=== PATIENT | female | born 1960 | race American Indian/Alaskan Native ===

== ENCOUNTER 2017-02-14 13:55 | Emergency (ER) | payer BC, MEDICAID, OTHER ==
[2017-02-14 13:55] VITALS: BMI 31.9
[2017-02-14 14:03] VITALS: RESP 18; TEMP 98.2; O2SAT 100
--- NOTE | 2017-02-14 14:29 | RAD ---
HISTORY: R/O FB COMPARISON: No prior. TECHNIQUE: Chest PA and lateral FINDINGS: LUNGS: The lungs are hyperinflated and there is peribronchial thickening with chronic changes in both lungs. There is scarring in both lower lobes and right mid lung. No focal consolidation. No evidence of radiopaque foreign body in the chest. PLEURA: No significant pleural effusion identified. No pneumothorax apparent. CARDIOVASCULAR: Normal. OSSEOUS STRUCTURES: No significant abnormalities. VISUALIZED UPPER ABDOMEN: Normal. OTHER FINDINGS: None. IMPRESSION: No acute findings. No evidence of radiopaque foreign body.
[2017-02-14] MEDS ORDERED: Sodium Chloride 0.9% 1,000 ML IV ONE (14:30)
[2017-02-14] MEDS ORDERED: Sodium Chloride 0.9% 1,000 ML ONE (14:53)
[2017-02-14 15:12] LABS: BASO % 0.5 % (0.0-2.0); EOS % 0.6 % (0.0-4.0); HEMATOCRIT 39.5 % (34.0-47.0); LYMPH # 1.5 K/uL (1.0-4.3); LYMPH % 31.4 % (20.0-40.0); MEAN CELL VOLUME 72.9 fL (81.0-99.0); MEAN CORPUSCULAR HEMOGLOBIN 22.8 pg (27.0-31.0); MEAN CORPUSCULAR HGB CONC 31.3 g/dL (33.0-37.0); MEAN PLATELET VOLUME 8.4 fL (7.2-11.7); MONO # 0.5 K/uL (0.0-0.8); MONO % 9.7 % (0.0-10.0); NRBC % 0.1 % (0.0-2.0); RED CELL DISTRIBUTION WIDTH 15.2 % (11.5-14.5); WHITE BLOOD COUNT 4.8 K/uL (4.8-10.8)
[2017-02-14 15:20] LABS: CHLORIDE 101 mmol/L (98-107); POTASSIUM 3.4 mmol/L (3.6-5.2); SODIUM 140 mmol/L (132-148)
[2017-02-14 15:22] LABS: AST/SGOT 21 U/L (14-36); BILIRUBIN,TOTAL 1.3 mg/dL (0.2-1.3); CARBON DIOXIDE 31 mmol/L (22-30); GFR AFRICAN-AMERICAN > 60
[2017-02-14 15:23] LABS: ALB/GLOB RATIO 1.2 (1.0-2.1); ALKALINE PHOSPHATASE 78 U/L (38-126); ALT/SGPT 20 U/L (9-52); BLOOD UREA NITROGEN 6 mg/dL (7-17); CALCIUM 8.9 mg/dl (8.6-10.4); GLUCOSE,RANDOM 104 mg/dL (65-105); MAGNESIUM 1.8 mg/dL (1.6-2.3)
--- NOTE | 2017-02-14 15:46 | C.PDOC ---
Time Seen by Provider: 02/14/17 14:14 Chief Complaint (Nursing): GI Problem History Per: Patient Onset/Duration Of Symptoms: Hrs (since last night) Current Symptoms Are (Timing): Still Present Context: Food (Pt states she was eating chicken last night when she felt that it got stuck in her chest. ) Severity: Moderate Location Of Pain/Discomfort: Other (esophagus) Quality Of Discomfort: Other (Feels food stuck) Associated Symptoms: Other (Pt is spitting up everything that she drinks) Exacerbating Factors: Food Alleviating Factors: None Additional History Per: Prior Records Past Medical History Reviewed: Historical Data, Nursing Documentation, Vital Signs Vital Signs: Last Vital Signs Temp 98.2 F 02/14/17 14:00 Pulse 75 02/14/17 14:00 Resp 18 02/14/17 14:00 BP 133/64 02/14/17 14:00 Pulse Ox 100 02/14/17 15:49 - Medical History PMH: Arthritis (BACK), Back Problems, Diabetes, HTN Surgical History: Endoscopy Family History: States: Unknown Family Hx - Social History Hx Tobacco Use: Yes Hx Alcohol Use: Yes Hx Substance Use: No - Immunization History Hx Tetanus Toxoid Vaccination: No Hx Influenza Vaccination: No Hx Pneumococcal Vaccination: No Review Of Systems Except As Marked, All Systems Reviewed And Found Negative. Constitutional: Negative for: Fever ENT: Negative for: Throat Pain Cardiovascular: Negative for: Light Headedness Respiratory: Negative for: Shortness of Breath, Hemoptysis Gastrointestinal: Negative for: Abdominal Pain, Constipation, Melena, Hematochezia, Hematemesis Musculoskeletal: Negative for: Neck Pain, Back Pain Skin: Negative for: Rash Neurological: Negative for: Weakness, Numbness, Seizures, Altered Mental Status Physical Exam - Physical Exam Appears: Non-toxic, No Acute Distress Skin: Normal Color, Warm, Dry, No Rash Head: Atraumatic, Normacephalic Eye(s): bilateral: PERRL, EOMI Throat: Normal Neck: Normal ROM, Supple Cardiovascular: Rhythm Regular Respiratory: Normal Breath Sounds, No Accessory Muscle Use Gastrointestinal/Abdominal: Soft, No Tenderness Back: No CVA Tenderness Extremity: Normal ROM Neurological/Psych: Oriented x3, Normal Speech, Normal Motor, Normal Sensation ED Course And Treatment - Laboratory Results Result Diagrams: 02/14/17 15:08 06/26/17 15:08 Lab Interpretation: No Acute Changes O2 Sat by Pulse Oximetry: 100 Pulse Ox Interpretation: Normal - Radiology CXR: Viewed By Me, Read By Radiologist CXR Interpretation: Yes: No Acute Disease Progress Note: Symptoms resolved after Reglan. Pt is now tolerating PO. Reassessment Condition: Improved Progress - Interventions Interventions:: Observation, Intravenous fluid - Medications Administered Intravenous: Antiemetic, Other (PPI) - Data Reviewed Data Reviewed: Lab, Diagnostic imaging, Old records - Patient Status Patient status: Completely improved - Continuity of Care Discussed patient case with:: Patient, ED Nurse - Patient Plan Patient Plan: Discharge, F/U with PCP, Continue present meds Disposition Counseled Patient/Family Regarding: Studies Performed, Diagnosis, Need For Followup, Rx Given - Disposition Referrals: Nathan Varela MD [Medical Doctor] - Dominga Marks [Staff Provider] - Disposition: HOME/ ROUTINE Disposition Time: 15:50 Condition: IMPROVED Additional Instructions: Follow up with your doctor and with a [facility] [employer] Technician for further evaluation and treatment. Return to the ER if you develop fever, vomiting, chest pain, shortness of breath, bloody or black stools, worsening of symptoms or if you have any other concerns. Prescriptions: Pantoprazole Sodium [Protonix] 40 mg PO DAILY #14 ect Instructions: Food Impaction (ED) - Clinical Impression Clinical Impression: Food impaction of esophagus
[2017-02-14 16:13] VITALS: BP 128/66; PULSE 78
== END 2017-02-14 16:13 | disposition home or self-care (01) ==
LOC: C.ER 13:55
DX: T18.128A Food in esophagus causing other injury, initial encounter (principal); X58.XXXA Exposure to other specified factors, initial encounter; Y92.9 Unspecified place or not applicable
CPT/HCPCS: 71020; 80053; 83735; 84484; 85025; 85610; 85730; 96361; 96374; 96375; 99284; C9113; J2765; J7040